=== PATIENT | male | born 1960 | race American Indian/Alaskan Native ===

== ENCOUNTER 2021-03-27 11:57 | Emergency (ER) | payer OTHER ==
[2021-03-27] MEDS ORDERED: KETOROLAC 30 MG/1 ML INJ IV ONE (13:00)
--- NOTE | 2021-03-27 13:02 | Emergency Department Report ---
ED Back Pain/Injury HPI - General Chief Complaint: Fall Stated Complaint: BACK PAIN/FALL Time Seen by Provider: 03/27/21 12:51 Source: EMS Limitations: No Limitations - History of Present Illness Initial Comments: 60-year-old -[place] male with a past medical history of hypertension presents to the ER via EMS with complaints of severe low back pain. Patient states that this occurred at work today just prior to arrival. He states that he was removing a procedure table of the back of a truck on a [place]. He states that he was holding onto the bed with one hand and reached back to let down the tailgate when he suddenly felt a sharp pain in his lower back radiating down into his right posterior thigh. He states that this pain was so severe it caused him to fall forward onto his chest. He states that he did not roll over and laid on the floor for a while. He states that he thought he would be better and able to stand up, but when he was not better after a few minutes and was unable to stand up due to the pain, his coworkers called EMS. He states that the pain is worse when he bends, and when he moves from a sitting to standing position and vice versa. He reports that he did have some mild numbness in his right thigh which lasted for about 2 to 3 minutes but has since resolved. He reports difficulty walking due to the pain in his back but he denies any weakness in his legs. He denies any bowel or bladder incontinence. He denies any chest pain, abdominal pain, bruising or open wounds to his chest or abdomen. He did denies any head injury or neck pain. He denies any prior issues with his back in the past. MD Complaint: back pain -: hour(s) (just SURGERY AID) - Related Data Previous Rx's Medication Instructions Recorded Last Taken Type HYDROcodone/APAP 5-325 [[place] 1 each PO Q4HR PRN #10 tablet 03/27/21 Unknown Rx 5/325] Ibuprofen [Motrin] 600 mg PO Q8H PRN #30 tablet 03/27/21 Unknown Rx methylPREDNISolone [Medrol 4MG 4 mg PO DAILY #1 pack 03/27/21 Unknown Rx DOSEPAK (21 tabs)] Allergies Allergy/AdvReac Type Severity Reaction Status Date / Time No Known Allergies Allergy Verified 03/27/21 12:01 ED Review of Systems ROS: Stated complaint: BACK PAIN/FALL Other details as noted in HPI ED Past Medical Hx - Past Medical History Previous Medical History?: No Hx Hypertension: Yes - Social History Smoking Status: Never Smoker Substance Use Type: None - Medications Home Medications: Home Medications Medication Instructions Recorded Confirmed Last Taken Type HYDROcodone/APAP 5-325 [[place] 1 each PO Q4HR PRN #10 tablet 03/27/21 Unknown Rx 5/325] Ibuprofen [Motrin] 600 mg PO Q8H PRN #30 tablet 03/27/21 Unknown Rx methylPREDNISolone [Medrol 4MG 4 mg PO DAILY #1 pack 03/27/21 Unknown Rx DOSEPAK (21 tabs)] ED Physical Exam - General Limitations: No Limitations General appearance: alert, in distress (mild from pain) - Head Head exam: Present: atraumatic, normocephalic, normal inspection - Eye Eye exam: Present: normal appearance, PERRL, EOMI Pupils: Present: normal accommodation - Neck Neck exam: Present: normal inspection, full ROM. Absent: meningismus - Respiratory Respiratory exam: Present: normal lung sounds bilaterally. Absent: respiratory distress, wheezes, rales, rhonchi - Cardiovascular Cardiovascular Exam: Present: regular rate, normal rhythm, normal heart sounds - GI/Abdominal GI/Abdominal exam: Present: soft. Absent: distended, tenderness, guarding, rebound - Extremities Exam Extremities exam: Present: normal inspection, full ROM - Back Exam Back exam: Present: normal inspection, full ROM (but slow and painful), paraspinal tenderness (bilateral, but more so right lower lumbar), vertebral tenderness (lower lumbar) - Neurological Exam Neurological exam: Present: alert, oriented X3, CN II-XII intact, normal gait (slow but normal ), reflexes normal. Absent: motor sensory deficit - Psychiatric Psychiatric exam: Present: normal affect, normal mood - Skin Skin exam: Present: intact ED Course Vital Signs 03/27/21 03/27/21 03/27/21 12:00 12:54 12:57 Temperature 97.6 F 98.4 F Pulse Rate 100 H 90 Respiratory 16 18 Rate Blood Pressure 138/88 Blood Pressure 140/90 [Right] O2 Sat by Pulse 98 98 98 Oximetry 03/27/21 15:08 Temperature 98.4 F Pulse Rate 79 Respiratory 20 Rate Blood Pressure Blood Pressure 142/89 [Right] O2 Sat by Pulse 100 Oximetry ED Medical Decision Making - Radiology Data Radiology results: report reviewed Patient: JAYCE HOLLEY MR#: [id number] : 1960 Acct:[id number] Age/Sex: 60 / M ADM Date: 03/27/21 Loc: ED Attending Dr: Ordering Physician: CAROLINE CHATTERJEE Date of Service: 03/27/21 Procedure(s): CT lumbar spine wo con Accession Number(s): [id number] cc: CAROLINE CHATTERJEE CT LUMBAR SPINE: 03/27/2021 INDICATION / CLINICAL INFORMATION: severe lumbar pain. COMPARISON: None available. FINDINGS: CT images of the lumbar spine were obtained. Images are evaluated in the axial, coronal, and sagittal planes. There is no evidence of acute traumatic injury. Degenerative changes are present as detailed below. LEVEL BY LEVEL ANALYSIS: L5-S1: The L5-S1 disc space appears to be fused, which may be due to developmental variation or end-stage degenerative change. L4-5: Moderate diffuse disc bulging associated with moderately severe central canal narrowing. Degenerative endplate irregularity at L4 is noted. L3-4: Mild diffuse disc bulging and facet degenerative changes. L2-3: Mild diffuse disc bulging associated with prominent facet degenerative changes, resulting in severe canal stenosis. L1-2: Unremarkable. PARASPINAL STRUCTURES: Unremarkable. IMPRESSION: Degenerative changes as described above, including severe stenosis at L2-3 moderately severe stenosis at L4-5. No evidence of acute traumatic injury. All CT scans at this location are performed using dose reduction to ALARA by means of automated exposure control. Signer Name: Angel Chambers MD Signed: 03/27/2021 2:28 PM Workstation Name: [id number] Transcribed By: SUNNY Dictated By: Angel Chambers MD Electronically Authenticated By: Angel Chambers MD Signed Date/Time: 03/27/21 1428 DD/ 25 TD/TT: - Medical Decision Making 60-year-old -[place] male with a past medical history of hypertension presents to the ER via EMS with complaints of severe low back pain. Patient states that this occurred at work today just prior to arrival. He states that he was removing a procedure table of the back of a truck on a [place]. He states that he was holding onto the bed with one hand and reached back to let down the tailgate when he suddenly felt a sharp pain in his lower back radiating down into his right posterior thigh. He states that this pain was so severe it caused him to fall forward onto his chest. He states that he did not roll over and laid on the floor for a while. He states that he thought he would be better and able to stand up, but when he was not better after a few minutes and was unable to stand up due to the pain, his coworkers called EMS. He states that the pain is worse when he bends, and when he moves from a sitting to standing position and vice versa. He reports that he did have some mild numbness in his right thigh which lasted for about 2 to 3 minutes but has since resolved. He reports difficulty walking due to the pain in his back but he denies any weakness in his legs. He denies any bowel or bladder incontinence. He denies any chest pain, abdominal pain, bruising or open wounds to his chest or abdomen. He did denies any head injury or neck pain. He denies any prior issues with his back in the past. CT lumbar spine reviewed -- Degenerative changes as described above, including severe stenosis at L2-3 moderately severe stenosis at L4-5. No evidence of acute traumatic injury. Patient has no saddle anesthesia, bowel or bladder incontinence. He has no LE weakness or sensation abnormality. He is not toxic or ill appearing. He has some improvement of his pain with meds. Discussed imaging results with patient. Recommend close follow up with Orthospine specialist. recommend back brace. He will be given rx for pain. His VS stable. Pt expressed understanding and agreed with plan. Patient stable at time of d/c. Critical care attestation.: If time is entered above; I have spent that time in minutes in the direct care of this critically ill patient, excluding procedure time. ED Disposition Clinical Impression: Lumbar radicular syndrome, DDD (degenerative disc disease), lumbar, Spinal stenosis, Bulging discs Disposition: 01 HOME / SELF CARE / HOMELESS Is pt being admited?: No Does the pt Need Aspirin: No Condition: Stable Instructions: Radicular Pain, Degenerative Disk Disease, Spinal Stenosis, [id number] Additional Instructions: Take the norco, the motrin and the medrol dose pack as prescribed. I recommend close follow up with Orthospine specialist listed on your discharge instructions. Or you can follow up with PCP. Return to ED if worse. Prescriptions: methylPREDNISolone [Medrol 4MG DOSEPAK (21 tabs)] 4 mg PO DAILY #1 pack Ibuprofen [Motrin] 600 mg PO Q8H PRN #30 tablet PRN Reason: Pain HYDROcodone/APAP 5-325 [[place] 5/325] 1 each PO Q4HR PRN #10 tablet PRN Reason: Pain Referrals: [facility] [Provider Group] - 3-5 Days Forms: Work/School Release Form(ED)
--- NOTE | 2021-03-27 14:32 | Cat Scan Report ---
CT LUMBAR SPINE: 03/27/2021 INDICATION / CLINICAL INFORMATION: severe lumbar pain. COMPARISON: None available. FINDINGS: CT images of the lumbar spine were obtained. Images are evaluated in the axial, coronal, and sagittal planes. There is no evidence of acute traumatic injury. Degenerative changes are present as detailed below. LEVEL BY LEVEL ANALYSIS: L5-S1: The L5-S1 disc space appears to be fused, which may be due to developmental variation or end- stage degenerative change. L4-5: Moderate diffuse disc bulging associated with moderately severe central canal narrowing. Degene rative endplate irregularity at L4 is noted. L3-4: Mild diffuse disc bulging and facet degenerative changes. L2-3: Mild diffuse disc bulging associated with prominent facet degenerative changes, resulting in se krsyten canal stenosis. L1-2: Unremarkable. PARASPINAL STRUCTURES: Unremarkable. IMPRESSION: Degenerative changes as described above, including severe stenosis at L2-3 moderately severe stenosi s at L4-5. No evidence of acute traumatic injury. All CT scans at this location are performed using dose reduction to ALARA by means of automated expos ure control. Signer Name: Angel Chambers MD Signed: 03/27/2021 2:28 PM Workstation Name: [id number]
[2021-03-27 15:09] VITALS: BP 142/89
== END 2021-03-27 15:08 | disposition home or self-care (01) ==
LOC: ED 11:57
DX: M51.36 Other intervertebral disc degeneration, lumbar region (principal); M54.16 Radiculopathy, lumbar region; M48.00 Spinal stenosis, site unspecified; I10 Essential (primary) hypertension
CPT/HCPCS: 72131; 96374; 99284; J1885